=== PATIENT | male | born 1965 | race Caucasian/White ===

== ENCOUNTER 2021-08-04 15:44 | Outpatient (CLI) | payer BC ==
[2021-08-05 01:07] LABS: SARS-CoV-2 PCR by NAA Not Detected (NotDetected)
== END 2021-08-04 15:45 | disposition home or self-care (01) ==
LOC: CSHLAB 15:44
PROVIDERS: ATTEND Otolaryngology Plastic Surgery within the Head & Neck
DX: Z01.818 Encounter for other preprocedural examination (principal); Z20.822 Contact with and (suspected) exposure to COVID-19; J35.9 Chronic disease of tonsils and adenoids, unspecified
CPT/HCPCS: 93005; 93010; U0003; U0005

== ENCOUNTER 2021-08-09 07:01 | Day surgery (SDC) | payer BC ==
[2021-08-06 10:11] VITALS: BMI 36.5
[2021-08-09] MEDS ORDERED: SUGAMMADEX SODIUM 200 MG/2 ML VIAL ONE (08:22)
[2021-08-09] MEDS ORDERED: EPINEPHrine 1 MG/ML AMP ONE ×2 (10:01)
[2021-08-09] MEDS ORDERED: Ondansetron PF 4 MG/2 ML Vial ONE (10:02)
[2021-08-09] MEDS ORDERED: Lidocaine 1% PF 5 ML VIAL ONE (10:02)
[2021-08-09] MEDS ORDERED: PROPOFOL 20 ML ONE (10:02)
[2021-08-09] MEDS ORDERED: Rocuronium Bromide 10 MG/ML (10ML VIAL) ONE (10:02)
[2021-08-09] MEDS ORDERED: Midazolam HCl 2 mg/2 ml Vial ONE (10:02)
[2021-08-09] MEDS ORDERED: Lidocaine 1% MPF 2 ML VIAL ONE (10:02)
[2021-08-09] MEDS ORDERED: Dexamethasone 20 MG/5 ML VIAL ONE (10:02)
[2021-08-09] MEDS ORDERED: Fentanyl 100 MCG/2 ML VIAL ONE ×2 (10:02→11:19)
[2021-08-09] MEDS ORDERED: Labetalol HCl 100 MG/20 ML VIAL ONE (10:42)
[2021-08-09] MEDS ORDERED: HYDROcodone/Acetaminophen 10/325 mg Tablet ONE (12:24)
== END 2021-08-09 12:35 | disposition home or self-care (01) ==
LOC: CSHSDC 07:01
PROVIDERS: ATTEND Otolaryngology Plastic Surgery within the Head & Neck
PROC: 0CJS8ZZ Inspection of Larynx, Via Natural or Artificial Opening Endoscopic (ICD-10-PCS; principal; 2021-08-09)
PROC: 0CTPXZZ Resection of Tonsils, External Approach (ICD-10-PCS; principal; 2021-08-09)
DX: C09.9 Malignant neoplasm of tonsil, unspecified (principal); G47.30 Sleep apnea, unspecified
CPT/HCPCS: 88304; 88305; 88309; 88331; 88341; 88342; J0171; J1100; J2250; J2405; J2704; J3010